=== PATIENT | female | born 1940 | race African-American/Black ===

== ENCOUNTER → 2016-12-25 | Outpatient (CLI) | payer MEDICARE, OTHER ==
--- NOTE | 2016-12-25 15:18 | RAD ---
DATE: 12/25/2016 EXAM: DIGITAL SCREEN BILAT W/CAD HISTORY: Asymptomatic screening mammogram COMPARISON: Prior mammogram from 01/03/2012, 12/10/2007 This study was interpreted with the benefit of Computerized Aided Detection (CAD). The breast parenchyma shows scattered fibroglandular densities. Breast parenchyma level B. FINDINGS: Bilateral CC and MLO views of the breasts were performed. Right breast: There are no suspicious microcalcifications, masses or areas of architectural distortion. Left breast: There are no suspicious microcalcifications, masses or areas of architectural distortion. Findings are stable from prior mammogram. IMPRESSION: Negative bilateral mammogram. Recommend annual screening mammography. BI-RADS CATEGORY: 1 NEGATIVE RECOMMENDED FOLLOW-UP: 12M 12 MONTH FOLLOW-UP PQRS compliance statement: Patient information was entered into a reminder system with a target due date 12/25/2017 for the next mammogram. Mammography is a sensitive method for finding small breast cancers, but it does not detect them all and is not a substitute for careful clinical examination. A negative mammogram does not negate a clinically suspicious finding and should not result in delay in biopsying a clinically suspicious abnormality. "Our facility is accredited by the [employer] Mammography Program."
== END | disposition home or self-care (01) ==
LOC: MAMMO 13:32
PROVIDERS: ATTEND Internal Medicine
DX: Z12.31 Encounter for screening mammogram for malignant neoplasm of breast (principal)
CPT/HCPCS: G0202; 77067

== ENCOUNTER → 2017-11-26 | Outpatient (CLI) | payer OTHER ==
[~2017-11-26] MED LIST: GELATIN SPONGE SIZE 12-7MM SPONGE.; LIDOCAINE WITH 8.4% SOD BICARB 3 ML DISP.SYRIN.; MIDAZOLAM HCL/PF 2 MG/2 ML VIAL.; fentaNYL PF VIAL 100 MCG/2 ML VIAL
[2017-11-26 07:48] LABS: ADD MAN DIFF? NO; BASO # 0.1 x10^3/uL (0.0-0.2); BASO % 1 % (0-3); EOS # 0.2 x10^3/uL (0.0-0.7); EOS % 3 % (0-3); HEMATOCRIT 36.6 % (36.0-47.0); HEMOGLOBIN 11.9 g/dL (12.0-15.5); LYMPH % 28 % (24-48); MEAN CORPUSCULAR HEMOGLOBIN 25 pg (25-35); MEAN CORPUSCULAR HGB CONC 33 g/dL (31-37); MEAN CORPUSCULAR VOLUME 75 fL (79-100); MONO # 0.5 x10^3/uL (0.0-1.1); MONO % 8 % (0-9); NEUT # 4.3 x10^3uL (1.8-7.7); NEUT % 60 % (31-73); PLATELET COUNT 336 x10^3/uL (140-400); RED BLOOD COUNT 4.86 x10^6/uL (3.50-5.40); RED CELL DISTRIBUTION WIDTH 15.7 % (11.5-14.5); WHITE BLOOD COUNT 7.2 x10^3/uL (4.0-11.0)
[2017-11-26 08:01] LABS: INR 1.2 (0.8-1.1)
[2017-11-26] MEDS: amLODIPine BESYLATE 10 MG TABLET PO (08:37)
[2017-11-26] MEDS: MIDAZOLAM HCL/PF 2 MG/2 ML VIAL. IV (09:32)
[2017-11-26] MEDS: LIDOCAINE WITH 8.4% SOD BICARB 3 ML DISP.SYRIN. IJ (09:32)
[2017-11-26] MEDS: fentaNYL PF VIAL 100 MCG/2 ML VIAL IV (09:32)
== END | disposition home or self-care (01) ==
LOC: US 07:11
DX: R79.89 Other specified abnormal findings of blood chemistry (principal); Z79.01 Long term (current) use of anticoagulants; I48.91 Unspecified atrial fibrillation; I10 Essential (primary) hypertension; Z90.721 Acquired absence of ovaries, unilateral; E11.9 Type 2 diabetes mellitus without complications; F41.9 Anxiety disorder, unspecified; F32.9 Major depressive disorder, single episode, unspecified; Z88.0 Allergy status to penicillin; Z88.5 Allergy status to narcotic agent; Z88.8 Allergy status to other drugs, medicaments and biological substances; Z79.84 Long term (current) use of oral hypoglycemic drugs
CPT/HCPCS: 36415; 47000; 76705; 76942; 85025; 85610; 99152; 99153; J2250; J3010

== ENCOUNTER → 2018-07-11 | Outpatient (CLI) | payer OTHER ==
[2017-11-26 10:50] VITALS: BP 148/40
[~2018-07-11] MED LIST changes: +AMIO200T4 PO; +AMLO10TA8 PO; +APIX5TAB PO; +ATOR40TA59 PO; +CARV12.511 PO; +CHLO25TA10 PO; +CITA20TA6 PO; +DOXA8TAB59 PO; +FENO145T30 PO; -GELATIN SPONGE SIZE 12-7MM SPONGE.; -LIDOCAINE WITH 8.4% SOD BICARB 3 ML DISP.SYRIN.; +LIRA0.6P2 SQ; -MIDAZOLAM HCL/PF 2 MG/2 ML VIAL.; +MIRT45TA58 PO; +MONT10TA9 PO; +OMEP20CA10 PO; -fentaNYL PF VIAL 100 MCG/2 ML VIAL
--- NOTE | 2018-07-11 14:36 | KCIC ---
Complete abdomen ultrasound study Clinical indications: Constipation. Nonalcoholic steatohepatitis. FINDINGS: No focal enlargement of the pancreas is seen. The intrahepatic portion of the IVC is unremarkable. No focal aneurysmal dilatation of the abdominal aorta is seen. The gallbladder is distended measuring 9.7 cm. There is biliary sludge within the gallbladder posteriorly. No gallbladder wall thickening is seen. The extrahepatic bile duct measures 4.2 mm in caliber which is normal. The liver measures 17.5 cm in length which is normal. No focal hepatic mass is seen. The spleen measures 10.2 cm in length which is normal. No ascites is seen. The length of the left kidney is 10.7 cm and the length of the right kidney is 11.0 cm. No hydronephrosis or perinephric fluid collection is seen on either side. There is a cyst within the upper pole of the left kidney measuring 2 cm in size. IMPRESSION: Dilated gallbladder. Biliary sludge within the gallbladder. Electronically signed by: Morgan Ortiz MD (07/11/2018 2:33 PM) [facility]
== END | disposition home or self-care (01) ==
LOC: KCIC US 08:46
PROVIDERS: ATTEND Internal Medicine
DX: K75.81 Nonalcoholic steatohepatitis (NASH) (principal); K59.00 Constipation, unspecified; K82.8 Other specified diseases of gallbladder; N28.1 Cyst of kidney, acquired
CPT/HCPCS: 76700